=== PATIENT | male | born 1985 | race Caucasian/White ===

== ENCOUNTER 2024-04-09 10:07 | Emergency (ER) | payer OTHER, SELFPAY ==
[2024-04-09 10:10] VITALS: BP 157/109
[2024-04-09 10:22] VITALS: BMI 29.4
--- NOTE | 2024-04-09 10:44 | ED.SKININJ ---
HPI-Injury
General
Chief Complaint: Skin Surface Trauma
Source: patient
Exam Limitations: none
Time Seen by Provider: 04/09/24 10:26
Travel History
Have you had any contact with someone who has COVID-19?: No
Do you have any symptoms of coronavirus? Fever > 100 degrees, chills, cough, shortness of breath, sore throat, loss of taste or smell, muscle aches, or headache?: No
History of Present Illness-Injury
Initial Injury comments:
39-year-old male presents with laceration to left ring finger he sustained today. He cut himself with a utility knife. Last tetanus vaccine unknown. No numbness or tingling or loss of function. No other complaints at this time
Past History
Past History
ED Past Medical History: Other (Migraines)
ED Past Surgical History: None
Social History
Tobacco: Non-smoker
Alcohol: None
Drug: None
Personal: Single
Living: with family
Phy Exam
Physical Exam
Physical Exam:
General: Well-appearing male no acute respiratory distress
Skin: 2 cm transverse superficial laceration volar aspect distal portion left ring finger edges are well-approximated not currently bleeding. No tendon involvement
Musculoskeletal exam: Good range of motion left long finger pacifically the DIP joint
Course
Orders/Labs/Results
Orders:
Orders
04/09/24 10:43
Tetanus/Diphth/Acelpertussis [Adacel] 0.5 ml IM .ONCE ONE
Vital Signs
Initial and Last Documented VS:
Initial Vital Signs
Temp Pulse Resp BP Pulse Ox
97.9 F 65 18 157/109 95
04/09/24 10:10 04/09/24 10:10 04/09/24 10:10 04/09/24 10:10 04/09/24 10:10
Last Documented Vital Signs
Temp Pulse Resp BP Pulse Ox
97.9 F 65 18 157/109 95
04/09/24 10:10 04/09/24 10:10 04/09/24 10:10 04/09/24 10:10 04/09/24 10:10
MDM/Problems Addressed
Differential Diagnosis Includes:
Laceration left long finger without tendon involvement. The wound was cleansed with saline and held in approximation with Dermabond benzoin and Steri-Strips. The finger was then wrapped his tetanus vaccine updated. He was discharged home with
wound care instructions.
Considered x-ray however not indicated.
Patient has no other medical conditions affecting today's care
*Critical Care Note
Total Time (30-74mins, 75-104mins- exclusive of procedures): Not Applicable
ED Attending Note
-
Portions of this chart may have been created with voice recognition software.� Occasional wrong word or��sound alike� substitutions may have occurred due to the inherent limitations of voice recognition software.
Discharge Plan
Departure
Patient Disposition: Home (Routine Discharge)
Date of Disposition: 04/09/24
Time of Disposition: 10:45
Patient with high blood pressure during this ER visit?: No
Discharge Problem:
Laceration
Instructions: Laceration Repair With Glue (DC)
Prescriptions:
No Action
oxycodone-acetaminophen [Percocet] 1 EACH tablet
1 ea PO Q4HPRN PRN (Reason: pain) Qty: 10 0RF
cephalexin 500 MG capsule
500 mg PO BID Qty: 14 0RF
cephalexin 500 MG capsule
500 mg PO BID Qty: 13 0RF
hydrocodone-acetaminophen 1 TABLET tablet
1 tab PO Q4HPRN PRN (Reason: severe pain) Qty: 8 0RF
azithromycin 250 mg tablet
250 mg PO DAILY 6 Days Qty: 6 0RF
Rx Instructions:
500mg PO on day 1, then 250mg PO qd x 4d
doxycycline hyclate 100 mg capsule
100 mg PO BID 10 Days Qty: 20 0RF
colchicine [Colcrys] 0.6 mg tablet
0.6 mg PO BID 5 Days Qty: 10 0RF
Rx Instructions:
Take until symptoms resolve
cephalexin 500 mg capsule
500 mg PO QID 7 Days Qty: 28 0RF
Referrals:
Michael Gordon MD [Family Provider] -
Activity Restrictions/Additional Instructions:
Keep clean. The Steri-Strips will fall off on their own. The glue will dissolve on its own. Return if needed
Interventions
Interventions:
*Risk Screen - Suicide Last Done: 04/09/24 10:19
*General Assessment Last Done: 04/09/24 10:19
*Neglect/Abuse Screening Last Done: 04/09/24 10:19
ED- Fall Risk Assessment Last Done: 04/09/24 10:21
*ED COVID-19 Vaccine History Last Done: 04/09/24 10:19
*Nursing Disposition Last Done: 04/09/24 10:58
ED-Skin Assessment Last Done: 04/09/24 10:21
Discharge Date and Time
Discharge Date/Time: 04/09/24 10:59
Print Language: PERSIAN
[2024-04-09] MEDS: ADACEL 0.5 ML IM (10:47)
== END 2024-04-09 10:59 | disposition home or self-care (01) ==
LOC: EMR 10:07
PROVIDERS: EMERGENCY PHYSICIAN Emergency Medicine; FAMILY PHYSICIAN Family Medicine
DX: S61.215A Laceration without foreign body of left ring finger without damage to nail, initial encounter (principal); W26.0XXA Contact with knife, initial encounter; Z23 Encounter for immunization
CPT/HCPCS: 99282; 12001; 90471; 90715

== ENCOUNTER 2024-07-23 15:26 | Emergency (ER) | payer SELFPAY ==
[2024-07-23 15:29] VITALS: BP 167/99
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
[2024-07-23 16:39] VITALS: BP 140/102
== END 2024-07-23 16:40 | disposition home or self-care (01) ==
LOC: EMR 15:26
PROVIDERS: EMERGENCY PHYSICIAN Emergency Medicine; FAMILY PHYSICIAN Family Medicine
DX: S39.012A Strain of muscle, fascia and tendon of lower back, initial encounter (principal); R51.9 Headache, unspecified; V49.40XA Driver injured in collision with unspecified motor vehicles in traffic accident, initial encounter
CPT/HCPCS: 99284; 70450; 72110